=== PATIENT | male | born 1995 | race Caucasian/White ===

== ENCOUNTER 2016-09-09 12:42 | Emergency (ER) | payer MEDICAID, OTHER ==
[~2016-09-09] VITALS: Ht 177.8 cm; Wt 111.0 kg
[2016-09-09 12:48] VITALS: Ht 177.8 cm; Wt 111.0 kg
[2016-09-09] MEDS ORDERED: ACETAMINOPHEN 325 MG TAB PO ONE (13:30)
[2016-09-09] MEDS ORDERED: ONDANSETRON (ODT) 4 MG TAB ODT STA (13:30)
--- NOTE | 2016-09-09 14:23 | RADRPT ---
PROCEDURE: Chest Radiograph. CLINICAL INDICATION: Chest pain TECHNIQUE: 2 frontal views of the chest COMPARISON: FINDINGS: The cardiomediastinal silhouette is within normal limits. No infiltrate or effusion is seen. Th e bones are intact. IMPRESSION: 1. Unremarkable chest radiograph. RPTAT: KK .Addison Syed MD, Date Time Electronically viewed and signed by .Addison Syed MD, on 09/09/2016 14:23 .B/
[2016-09-09 14:42] LABS: BARBITURATES Negative (NEGATIVE); BENZODIAZEPINES Negative (NEGATIVE); COCAINE Negative (NEGATIVE)
[2016-09-09 14:43] LABS: OPIATES Negative (NEGATIVE)
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
[2016-09-09 14:54] LABS: CANNABINOIDS NEGATIVE (NEGATIVE)
[2016-09-09] MEDS ORDERED: IBUP-1542 PO (15:21)
[2016-09-09] MEDS ORDERED: ACET500C5 PO (15:22)
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
[2016-09-09 15:45] VITALS: BP 111/69; PULSE 72; RESP 17; TEMP 98.7
== END 2016-09-09 15:45 | disposition home or self-care (01) ==
LOC: FTE 12:42
DX: S09.90XA Unspecified injury of head, initial encounter (principal); R51 Headache; R07.89 Other chest pain; V49.40XA Driver injured in collision with unspecified motor vehicles in traffic accident, initial encounter
CPT/HCPCS: 70450; 71010; 80307; 93005